=== PATIENT | male | born 1960 | race Caucasian/White ===

== ENCOUNTER 2021-08-01 08:22 | Outpatient (CLI) | payer BC ==
[2021-08-01 10:07] LABS: #Basophils 0.1 10x3/uL (0.0-0.2); #Eosinphils 0.1 10x3/uL (0.0-0.5); #Monocytes 0.5 10x3/uL (0.0-1.1); #Neutrophils 3.8 10x3/uL (1.5-8.4); %Basophils 1.1 % (0.0-2.0); %Eosinophils 2.2 % (0.0-6.0); %Monocytes 8.3 % (0.0-10.0); %Neutrophils 67.3 % (40.0-75.0); Hemoglobin 15.4 g/dL (13.5-17.5); Mean Corpuscular HGB CONC 32.8 g/dL (32.0-36.0); Mean Corpuscular Hemoglobin 28.7 pg (27.0-33.0); Mean Corpuscular Volume 87.5 fl (81.2-95.1); Mean Platelet Volume 9.8 fl (7.4-10.4); Platelet Count 269 10x3/uL (150-450); RBC Distribution Width 13.1 % (11.5-14.5); Red Blood Cell (RBC) Count 5.37 10x6/uL (4.32-5.72); White Blood Cell (WBC) Count 5.6 10x3/uL (3.5-10.5)
[2021-08-01 10:25] LABS: ALT (SGPT) 39 U/L (8-55); AST (SGOT) 20 U/L (5-34); Albumin 4.5 g/dL (3.4-4.8); Alkaline Phosphatase 61 U/L (40-110); Anion Gap 13 mmol/L (10-20); BUN (Urea Nitrogen) 22 mg/dL (8.4-25.7); Bilirubin, Direct 0.2 mg/dL (0.1-0.3); Bilirubin, Total 0.5 mg/dL (0.2-1.2); Calc. Creatinine Clearance 0 mL/min (70-130); Calcium 9.2 mg/dL (7.8-10.44); Carbon Dioxide 28 mmol/L (23-31); Chloride 104 mmol/L (98-107); Glucose 98 mg/dL (80-115); Potassium 4.5 mmol/L (3.5-5.1); Sodium 140 mmol/L (136-145)
[2021-08-01 21:58] LABS: SARS-CoV-2 PCR by NAA Not Detected (NotDetected)
== END 2021-08-01 08:23 | disposition home or self-care (01) ==
LOC: LABBT 08:22
PROVIDERS: ATTEND Surgery
DX: Z01.818 Encounter for other preprocedural examination (principal); K80.20 Calculus of gallbladder without cholecystitis without obstruction; Z20.822 Contact with and (suspected) exposure to COVID-19
CPT/HCPCS: 80048; 80076; 85025; 93005; 93010; U0003; U0005

== ENCOUNTER 2021-08-03 07:16 | Day surgery (SDC) | payer BC ==
[2021-08-02 11:14] VITALS: BMI 27.7
[2021-08-03] MEDS ORDERED: ceFAZolin 2 GM/DEX 5% 100 ML BAG ONE (07:35)
[2021-08-03] MEDS ORDERED: SUGAMMADEX SODIUM 200 MG/2 ML VIAL ONE (09:25)
[2021-08-03] MEDS ORDERED: Fentanyl 100 MCG/2 ML VIAL ONE ×5 (09:25→12:06)
[2021-08-03] MEDS ORDERED: Bupivacaine 0.25% HCL 30 ML VIAL ONE (09:26)
[2021-08-03] MEDS ORDERED: Lidocaine 1% w/Epinephrine 1:100K 20 ML VIAL ONE (09:26)
[2021-08-03] MEDS ORDERED: Rocuronium Bromide 10 MG/ML (10ML VIAL) ONE (10:06)
[2021-08-03] MEDS ORDERED: Glycopyrrolate 0.2 MG/ML 5 ML SYRINGE ONE (10:06)
[2021-08-03] MEDS ORDERED: Ondansetron PF 4 MG/2 ML Vial ONE (10:06)
[2021-08-03] MEDS ORDERED: Dexamethasone 20 MG/5 ML VIAL ONE (10:06)
[2021-08-03] MEDS ORDERED: Ketorolac Tromethamine 30 MG/ML VIAL ONE (10:06)
[2021-08-03] MEDS ORDERED: Lidocaine 1% PF 5 ML VIAL ONE (10:06)
[2021-08-03] MEDS ORDERED: PROPOFOL 200 MG/20 ML VIAL ONE (10:06)
[2021-08-03] MEDS ORDERED: ePHEDrine 50 MG/ML VIAL ONE (10:06)
[2021-08-03] MEDS ORDERED: HYDROcodone/Acetaminophen 5/325 mg Tablet ONE (12:44)
== END 2021-08-03 14:15 | disposition home or self-care (01) ==
LOC: SDC 07:16
PROVIDERS: ATTEND Surgery
PROC: 0FT44ZZ Resection of Gallbladder, Percutaneous Endoscopic Approach (ICD-10-PCS; principal; 2021-08-03)
DX: K80.10 Calculus of gallbladder with chronic cholecystitis without obstruction (principal); K21.9 Gastro-esophageal reflux disease without esophagitis; G89.29 Other chronic pain; M47.896 Other spondylosis, lumbar region; M10.9 Gout, unspecified; Z87.891 Personal history of nicotine dependence; Z90.79 Acquired absence of other genital organ(s); Z98.890 Other specified postprocedural states; Z79.899 Other long term (current) drug therapy; Z96.0 Presence of urogenital implants
CPT/HCPCS: 88304; J1100; J1885; J2405; J2704; J3010; J3490; S0020

== ENCOUNTER 2023-02-14 14:18 | Outpatient (CLI) | payer OTHER | END 2023-02-14 14:19 | disposition home or self-care (01) | LOC: ULT 14:18 | PROVIDERS: ATTEND Family Medicine | DX: K40.90 Unilateral inguinal hernia, without obstruction or gangrene, not specified as recurrent (principal); Z90.79 Acquired absence of other genital organ(s); Z96.0 Presence of urogenital implants | CPT/HCPCS: 76870; 93976 ==

== ENCOUNTER 2023-04-26 15:16 | Emergency (ER) | payer OTHER ==
[2023-04-26] MEDS ORDERED: Heparin 10,000 UNITS/ 10 ML VIAL ONE (15:27)
[2023-04-26] MEDS ORDERED: Aspirin Chewable 81 MG TAB ONE (15:27)
[2023-04-26] MEDS ORDERED: Heparin 25,000 UNITS/D5W 500 ml bag ONE (15:27)
[2023-04-26] MEDS ORDERED: fentaNYL 50 mcg/mL 1 mL Vial ONE (15:36)
[2023-04-26] MEDS ORDERED: TICAGRELOR 90 MG TABLET ONE (15:48)
[2023-04-26 15:50] LABS: #Eosinphils 0.1 thou/uL (0.0-0.7); #Monocytes 0.8 thou/uL (0.11-0.59); %Basophils 0.3 % (0.0-1.0); %Eosinophils 0.9 % (0.0-10.0); %Lymphocytes 21.4 % (21.0-51.0); %Monocytes 10.7 % (0.0-10.0); %Neutrophils 66.4 % (42.0-75.0); Mean Corpuscular HGB CONC 32.2 g/dL (32.0-36.0); Mean Corpuscular Hemoglobin 28.7 pg (27.0-31.0); Mean Corpuscular Volume 89.3 fl (78.0-98.0); Mean Platelet Volume 9.7 fL (7.4-10.4); RBC Distribution Width 13.1 % (11.5-14.5); Red Blood Cell (RBC) Count 5.22 mill/uL (4.70-6.10); White Blood Cell (WBC) Count 7.5 10x3/uL (4.8-10.8)
[2023-04-26 16:11] LABS: Platelet Count 250 10x3/uL (130-400)
[2023-04-26 16:15] LABS: ALT (SGPT) 30 U/L (8-55); AST (SGOT) 36 U/L (5-34); Albumin 4.7 g/dL (3.4-4.8); Alkaline Phosphatase 56 U/L (40-110); Anion Gap 12 mmol/L (10-20); BUN (Urea Nitrogen) 18 mg/dL (8.4-25.7); Bilirubin, Total 0.3 mg/dL (0.2-1.2); Calc. Creatinine Clearance 0 mL/min (70-130); Calcium 9.2 mg/dL (7.8-10.44); Carbon Dioxide 25 mmol/L (23-31); Chloride 106 mmol/L (98-107); Estimated GFR 96; Globulin 2.9 g/dL (2.4-3.5); Glucose 108 mg/dL (80-115); Lipase 9 U/L (8-78); Protein, Total 7.6 g/dL (5.8-8.1); Sodium 139 mmol/L (136-145)
[2023-04-26 16:50] LABS: CKMB 6.4 ng/mL (0-6.6)
== END 2023-04-26 16:11 | disposition short-term general hospital (02) ==
LOC: ERS 15:16
DX: I21.3 ST elevation (STEMI) myocardial infarction of unspecified site (principal); I10 Essential (primary) hypertension
CPT/HCPCS: 71045; 80053; 82553; 83690; 84484; 85025; 93005; 96365; 96375; 96376; J1644; J3010

== ENCOUNTER 2023-09-13 14:26 | Outpatient (CLI) | payer MEDICARE | END 2023-09-13 14:27 | disposition home or self-care (01) | LOC: BICCT 14:26 | PROVIDERS: ATTEND Otolaryngology Plastic Surgery within the Head & Neck | DX: R09.81 Nasal congestion (principal); J32.0 Chronic maxillary sinusitis; J32.3 Chronic sphenoidal sinusitis; J32.2 Chronic ethmoidal sinusitis ==

== ENCOUNTER 2023-09-25 11:37 | Day surgery (SDC) | payer MEDICARE ==
[2023-09-19 09:29] VITALS: BMI 26.3
[2023-09-25] MEDS ORDERED: Bupivacaine 0.25% HCL 30 ML VIAL ONE ×2 (13:48→13:56)
[2023-09-25] MEDS ORDERED: EPINEPHrine 1 MG/ML VIAL ONE (13:48)
[2023-09-25] MEDS ORDERED: Lidocaine 2% PF 5 ML VIAL ONE ×2 (13:56→13:57)
[2023-09-25] MEDS ORDERED: Bupivacaine PF 0.5% 30 ML VIAL ONE ×3 (13:59→14:30)
[2023-09-25] MEDS ORDERED: fentaNYL PF 100 MCG/2 ML SYRINGE ONE ×2 (14:00→15:38)
[2023-09-25] MEDS ORDERED: PROPOFOL 20 ML ONE (14:00)
[2023-09-25] MEDS ORDERED: Lidocaine 1% PF 5 ML VIAL ONE (14:00)
[2023-09-25] MEDS ORDERED: CEFAZOLIN 1 GM VIAL ONE (14:20)
[2023-09-25] MEDS ORDERED: ePHEDrine Sulfate 50 MG/10 ML VIAL ONE (14:21)
[2023-09-25] MEDS ORDERED: Ondansetron PF 4 MG/2 ML Vial ONE (14:55)
[2023-09-25] MEDS ORDERED: Ketorolac Tromethamine 30 MG (1 mL) VIAL ONE (15:17)
[2023-09-25] MEDS ORDERED: fentaNYL 50 mcg/mL 1 mL Vial ONE (15:55)
[2023-09-25] MEDS ORDERED: HYDROcodone/Acetaminophen 5/325 mg Tablet ONE (16:29)
== END 2023-09-25 17:15 | disposition home or self-care (01) ==
LOC: SDC 11:37
PROVIDERS: ATTEND Surgery
PROC: 0YU Anatomical Regions, Lower Extremities, Supplement (ICD-10-PCS; principal; 2023-09-25)
DX: K40.20 Bilateral inguinal hernia, without obstruction or gangrene, not specified as recurrent (principal); C61 Malignant neoplasm of prostate; M10.9 Gout, unspecified; N52.9 Male erectile dysfunction, unspecified; N40.1 Benign prostatic hyperplasia with lower urinary tract symptoms; N39.3 Stress incontinence (female) (male); Z88.8 Allergy status to other drugs, medicaments and biological substances; Z87.891 Personal history of nicotine dependence; Z79.899 Other long term (current) drug therapy
CPT/HCPCS: 49505; 93005; A4306; C1781; J0171; J3010; 93010; J0690; J1885; J2001; J2405; J2704; S0020